=== PATIENT | female | born 1970 | race Caucasian/White ===

== ENCOUNTER → 2018-02-19 11:32 | Outpatient (CLI) | payer BC, SELFPAY ==
--- NOTE | 2018-02-19 11:38 | RAD_ITS ---
STUDY: X-RAY - RIGHT SHOULDER REASON FOR EXAM: Female, 47 years old. Right shoulder pain, no known injury TECHNIQUE: 4 view(s) of the shoulder. COMPARISON: None. FINDINGS: Normal glenohumeral articulation. Normal acromioclavicular joint. Normal acromion. Normal humeral head and visualized proximal humerus. The soft tissue structures are unremarkable. Normal visualized pulmonary apex. RAD/Shoulder min 2 Views IMPRESSION: Normal x-ray examination of the shoulder. Electronically Signed: Martinez Langston DO at 9:07 EDT Tel , Service support ,
== END ==
PROVIDERS: Family Provider Family Medicine; PCP Family Medicine; Visit Provider Family Medicine
DX: M25.511 Pain in right shoulder (principal)
CPT/HCPCS: 73030

== ENCOUNTER → 2018-02-26 09:53 | Outpatient (CLI) | payer BC, SELFPAY ==
--- NOTE | 2018-02-26 09:54 | ECHOD_ITS ---
Reason For Study: MURMUR Procedure This was a 2D Doppler, Color Flow transthoracic echocardiogram. Exam performed in department. Left Ventricle Normal LV size. Left ventricular systolic function is normal. The estimated ejection fraction is 55 %. No evidence for diastolic dysfunction. No regional wall motion abnormalities noted. Right Ventricle Normal RV size. Normal systolic function. Atria Normal left atrium. Normal right atrium. Mitral Valve Mitral valve not well visualized. Tricuspid Valve The tricuspid valve is not well visualized. Mild (1+) tricuspid valve insufficiency. Pulmonary artery systolic pressure is 32 mmHg. Aortic Valve The aortic valve is not well visualized. Pulmonic Valve Normal pulmonic valve. Great Vessels Normal aortic root. The pulmonary artery is normal size. Normal inferior vena cava. Pericardium/Pleural No pericardial effusion. MMode/2D Measurements & Calculations LVIDd: 4.5 cm IVSd: 1.0 cm Ao root diam: 2.9 cm LVIDs: 3.3 cm LVPWd: 1.0 cm LA dimension: 3.8 cm RVDd: 3.3 cm FS: 25.6 % LAV(MOD-bp): 55.8 ml LA A4 area: 18.1 cm2 RA A4 area: 14.0 cm2 LAV(MOD-bp) Indexed: 29.5 ml/m2 LAV(MOD-sp2): 54.2 ml LAV(MOD-sp4): 56.0 ml Time Measurements MV dec time: 0.20 sec Doppler Measurements & Calculations MV E max river: 67.3 cm/sec Lat Peak E' River: 10.2 cm/sec Med Peak E' River: 10.4 cm/sec MV A max river: 56.5 cm/sec E/E' lat: 6.6 E/E' med: 6.5 MV E/A: 1.2 Ao V2 max: 123.3 cm/sec LV V1 max: 84.8 cm/sec PA V2 max: 86.3 cm/sec Ao max P.1 mmHg LV V1 max P.9 mmHg PI end-d river: 78.8 cm/sec TR max river: 255.8 cm/sec TR max P.3 mmHg Interpretation Summary Normal LV size. Left ventricular systolic function is normal. The estimated ejection fraction is 55 %. No evidence for diastolic dysfunction. Mild (1+) tricuspid valve insufficiency. Ordering Physician: Chadwick Narayanan Referring Physician: Chadwick Narayanan Performed By: Oralia Gerardo, PINA, RVT
== END ==
PROVIDERS: Family Provider Family Medicine; PCP Family Medicine; Visit Provider Family Medicine
DX: R01.1 Cardiac murmur, unspecified (principal)
CPT/HCPCS: 93306

== ENCOUNTER → 2018-03-27 10:24 | Outpatient (CLI) | payer BC, SELFPAY ==
--- NOTE | 2018-03-27 10:39 | US_ITS ---
STUDY: ULTRASOUND OF THE FEMALE PELVIS - COMPLETE REASON FOR EXAM: Female, 48 years old. Abnormal uterine bleeding LMP: TECHNIQUE: Transabdominal and Transvaginal TECHNICAL QUALITY: Adequate. COMPARISON: None. FINDINGS: The uterus is anteverted and is in a midline position. The uterus measures 9.2 x 6.2 x 5.4 cm. There is a Nabothian cyst of the cervix. The endometrium is hyperechoic. There is no demonstrated endometrial mass. There is a uterine fibroid which is well-circumscribed measuring 23 x 20 x 23 mm. This is in the anterior uterus. I.U.D. - The patient does not have an I.U.D. The right ovary is non-visualized. The left ovary is non-visualized. . There is no fluid in the cul-de-sac. The pre void volume of the bladder was 45 ml. US/Pelvic (Non ) IMPRESSION: Fibroid uterus. There are Nabothian cysts of the cervix. Electronically Signed: Wm Ndiaye MD at 17:43 EDT , Service support ,
--- NOTE | 2018-03-27 10:39 | US_ITS ---
STUDY: ULTRASOUND OF THE FEMALE PELVIS - COMPLETE REASON FOR EXAM: Female, 48 years old. Abnormal uterine bleeding LMP: TECHNIQUE: Transabdominal and Transvaginal TECHNICAL QUALITY: Adequate. COMPARISON: None. FINDINGS: The uterus is anteverted and is in a midline position. The uterus measures 9.2 x 6.2 x 5.4 cm. There is a Nabothian cyst of the cervix. The endometrium is hyperechoic. There is no demonstrated endometrial mass. There is a uterine fibroid which is well-circumscribed measuring 23 x 20 x 23 mm. This is in the anterior uterus. I.U.D. - The patient does not have an I.U.D. The right ovary is non-visualized. The left ovary is non-visualized. . There is no fluid in the cul-de-sac. The pre void volume of the bladder was 45 ml. US/Transvaginal Non- IMPRESSION: Fibroid uterus. There are Nabothian cysts of the cervix. Electronically Signed: Wm Ndiaye MD at 17:43 EDT , Service support ,
== END ==
PROVIDERS: Family Provider Family Medicine; PCP Family Medicine
DX: N92.1 Excessive and frequent menstruation with irregular cycle (principal)
CPT/HCPCS: 76830; 76856

== ENCOUNTER → 2018-05-20 15:39 | Outpatient (CLI) | payer BC, SELFPAY ==
--- NOTE | 2018-05-20 15:40 | BI_ITS ---
MAMMOGRAPHY - BILATERAL SCREENING REASON FOR EXAM: Female, 48 years old. Routine annual screening examination. PERTINENT HISTORY: Non-contributory. TECHNIQUE: Digital bilateral breast chapo (3D mammographic acquisition) in the CC and MLO projections. 2-D mediolateral oblique (MLO) and craniocaudad (CC) views of both breasts were obtained. CAD: Full Field Digital Mammography with Computer Added Detection was performed. COMPARISON: Comparison is made with prior examination dated January 14, 2009. FINDINGS: Breast Composition: There are scattered areas of fibroglandular density. There are several small well-defined scattered nodular densities in both breasts. These may represent small cysts. Correlation with ultrasound of both breasts is recommended as a baseline. No other significant abnormalities are identified. BI/SCREENING MAMM (CAD), BILAT IMPRESSION: Multiple small well-defined nodular densities in both breasts as described. Correlation with ultrasound is recommended. ASSESSMENT CATEGORY: BIRADS Category 0: Incomplete. Need additional imaging evaluation. A letter regarding these results will be sent to the patient by the facility within 30 days. Approximately 10% of breast cancers are not detected by mammography. A normal mammogram should not delay biopsy of a clinically suspicious abnormality. [id number] Electronically Signed: Anthony Wright MD at 8:04 EDT Tel [phone], Service support ,
== END ==
PROVIDERS: Family Provider Family Medicine; PCP Family Medicine; Visit Provider Obstetrics & Gynecology
DX: Z12.31 Encounter for screening mammogram for malignant neoplasm of breast (principal)
CPT/HCPCS: 77063; 77067

== ENCOUNTER → 2018-05-27 14:46 | Outpatient (CLI) | payer BC, SELFPAY ==
--- NOTE | 2018-05-27 14:52 | US_ITS ---
STUDY: ULTRASOUND BREAST - RIGHT REASON FOR EXAM: Female, 48 years old. Abnormal screening mammogram. TECHNIQUE: Axial and longitudinal images of the RIGHT breast were performed with a high resolution ultrasound transducer. COMPARISON: Comparison is made with prior mammogram dated May 20, 2018. FINDINGS: RIGHT Breast: There is a 3 mm x 5 mm x 3 mm cyst at the 12:00 position of the breast at 2 cm from nipple. This also evidence of a 5 mm x 5 mm x 3 mm cyst at the 2:00 position breast at 2 cm from nipple. IMPRESSION: 2 small cysts. ASSESSMENT CATEGORY: BIRADS Category 2: Benign. A letter regarding these results will be sent to the patient by the facility within 30 days. Electronically Signed: Anthony Wright MD at 8:22 EDT Tel [phone], Service support , STUDY: ULTRASOUND BREAST - LEFT REASON FOR EXAM: Female, 48 years old. Abnormal screening mammogram. TECHNIQUE: Axial and longitudinal images of the LEFT breast were performed with a high resolution ultrasound transducer. COMPARISON: Comparison is made with prior mammogram dated May 20, 2018. FINDINGS: LEFT Breast: There is a 4 mm x 4 mm x 4 mm cyst at the 9:00 position the breast at 1 cm from nipple. This also evidence of a dilated subareolar ducts. US/Breast Limited Unilateral IMPRESSION: Small cyst in the dilated subareolar ducts. Routine mammographic follow-up is recommended. ASSESSMENT CATEGORY: BIRADS Category 2: Benign. A letter regarding these results will be sent to the patient by the facility within 30 days. Electronically Signed: Anthony Wright MD at 8:23 EDT Tel [phone], Service support ,
--- NOTE | 2018-05-27 14:52 | US_ITS ---
STUDY: ULTRASOUND BREAST - RIGHT REASON FOR EXAM: Female, 48 years old. Abnormal screening mammogram. TECHNIQUE: Axial and longitudinal images of the RIGHT breast were performed with a high resolution ultrasound transducer. COMPARISON: Comparison is made with prior mammogram dated May 20, 2018. FINDINGS: RIGHT Breast: There is a 3 mm x 5 mm x 3 mm cyst at the 12:00 position of the breast at 2 cm from nipple. This also evidence of a 5 mm x 5 mm x 3 mm cyst at the 2:00 position breast at 2 cm from nipple. IMPRESSION: 2 small cysts. ASSESSMENT CATEGORY: BIRADS Category 2: Benign. A letter regarding these results will be sent to the patient by the facility within 30 days. Electronically Signed: Anthony Wright MD at 8:22 EDT Tel [phone], Service support , STUDY: ULTRASOUND BREAST - LEFT REASON FOR EXAM: Female, 48 years old. Abnormal screening mammogram. TECHNIQUE: Axial and longitudinal images of the LEFT breast were performed with a high resolution ultrasound transducer. COMPARISON: Comparison is made with prior mammogram dated May 20, 2018. FINDINGS: LEFT Breast: There is a 4 mm x 4 mm x 4 mm cyst at the 9:00 position the breast at 1 cm from nipple. This also evidence of a dilated subareolar ducts. US/Breast Limited Unilateral IMPRESSION: Small cyst in the dilated subareolar ducts. Routine mammographic follow-up is recommended. ASSESSMENT CATEGORY: BIRADS Category 2: Benign. A letter regarding these results will be sent to the patient by the facility within 30 days. Electronically Signed: Anthony Wright MD at 8:23 EDT Tel [phone], Service support ,
== END ==
PROVIDERS: Family Provider Family Medicine; PCP Family Medicine; Visit Provider Obstetrics & Gynecology
DX: R92.8 Other abnormal and inconclusive findings on diagnostic imaging of breast (principal)
CPT/HCPCS: 76642

== ENCOUNTER → 2018-12-02 11:01 | Outpatient (CLI) | payer BC, SELFPAY ==
[2018-12-02 14:05] LABS: Follicle Stimulating Hormone 52.8 mIU/mL
== END ==
PROVIDERS: Visit Provider Obstetrics & Gynecology
DX: N95.1 Menopausal and female climacteric states (principal); N92.1 Excessive and frequent menstruation with irregular cycle
CPT/HCPCS: 36415; 83001

== ENCOUNTER → 2020-06-21 | Outpatient (CLI) | payer BC, SELFPAY | END | disposition home or self-care (01) | PROVIDERS: PCP Family Medicine; Referring Provider Family Medicine; Visit Provider Family Medicine | DX: Z20.828 Contact with and (suspected) exposure to other viral communicable diseases (principal) | CPT/HCPCS: 87635; U0003 ==

== ENCOUNTER 2021-11-22 16:01 | Outpatient (CLI) | payer BC, SELFPAY ==
--- NOTE | 2021-11-22 16:07 | RAD_ITS ---
STUDY: X-RAY - RIGHT SHOULDER REASON FOR EXAM: Female, 51 years old. Right shoulder pain. TECHNIQUE: 4 view(s) of the shoulder. COMPARISON: None. FINDINGS: Normal glenohumeral articulation. There is mild degenerative arthrosis of the acromioclavicular joint without inferior osseous spur formation. Normal acromion. There is no acute fracture, dislocation or destructive osseous pathology. Normal humeral head and visualized proximal humerus. The soft tissue structures are unremarkable. Normal visualized pulmonary apex. RAD/Shoulder min 2 Views IMPRESSION: Mild arthrosis of the acromioclavicular joint. Electronically Signed: Alberto Schmitz DO at 16:56 EST Tel [phone], Service support ,
--- NOTE | 2021-11-22 16:08 | RAD_ITS ---
INDICATION: SHOULDER PAIN EXAMINATION/TECHNIQUE: X-RAY - XR Spine Cervical 4 or 5 Views COMPARISON: Right shoulder x-rays, 11/22/2021. FINDINGS: VERTEBRAE: Preserved vertebral body height. No fracture. No spondylolisthesis. Preservation of the normal cervical lordosis. There is significant facet arthropathy most notably at C3-4 through C5-6 levels. There is also uncovertebral joint arthropathy at these levels. DISCS: C4-5 and C5-6 degenerative disc and endplate changes, most notably at C5-6. Mild uncovertebral joint arthropathy at this level. NECK SOFT TISSUES: No prevertebral soft tissue widening. LUNG APICES: Clear. RAD/Cerv Spine 4 or 5 Views IMPRESSION: Mild to moderate degenerative disc and endplate changes C4-5 and C5-6 levels. Advanced facet joint arthropathy and hypertrophy C3-4 through C5-6. This appears to result in some neuroforaminal narrowing on the oblique views, most notably at C4-5 level. Electronically Signed: Sterling Villatoro DO at 21:46 EST Tel , Service support ,
== END 2021-11-22 23:59 | disposition short-term general hospital (02) ==
PROVIDERS: PCP Family Medicine; Referring Provider Family Medicine; Visit Provider Family Medicine
DX: M19.011 Primary osteoarthritis, right shoulder (principal)
CPT/HCPCS: 72050; 73030

== ENCOUNTER → 2022-05-02 | Outpatient (CLI) | payer BC, SELFPAY ==
--- NOTE | 2022-05-02 09:15 | MRI_ITS ---
STUDY: MRI RIGHT SHOULDER REASON FOR EXAM: Right shoulder pain. TECHNIQUE: Standardized fat and water weighted pulse sequences were obtained in all 3 orthogonal planes. COMPARISON: Radiographs 11/22/2021. FINDINGS: There is supraspinatus tendinosis and a small full-thickness tear of the distal anterior supraspinatus tendon (T2 coronal images 14, 15) measuring approximately 0.7 cm in length and width. There is infraspinatus tendinosis (T2 coronal images 8-10) without discrete tendon tear. Normal subscapularis tendon. Normal teres minor tendon. There is mild atrophy with mild partial fat replacement of the supraspinatus and infraspinatus muscles (T2 sagittal images 4-7). Normal subscapularis muscle. Normal teres minor muscle. There is a small glenohumeral joint effusion. Normal humeral head and visualized proximal humerus. Normal biceps labral complex. Normal intracapsular long biceps tendon. Normal labrum. Normal capsulo- ligamentous complex. There is mild acromioclavicular arthrosis with capsular thickening effacing the subacromial fat (T2 sagittal image 9). There is a Type I morphology (flat undersurface), with a neutral orientation. There is subacromial-subdeltoid bursal fluid. Normal visualized coracohumeral and coracoacromial ligaments. Normal deltoid muscle. Normal trapezius muscle. MRI/Upper Ext Joint Only(Routine) IMPRESSION: Small full-thickness tear and tendinosis of the supraspinatus tendon. Infraspinatus tendinosis. Mild atrophy of the supraspinatus and infraspinatus muscles. Mild acromioclavicular arthrosis. Glenohumeral joint fluid communicating with the subacromial-subdeltoid bursa. Electronically Signed: Andrzej Harris MD at 10:25 EDT ,
== END | disposition home or self-care (01) ==
LOC: MRI 09:07
PROVIDERS: PCP Family Medicine; Visit Provider Family Medicine
DX: M25.511 Pain in right shoulder (principal)
CPT/HCPCS: 73221

== ENCOUNTER → 2025-03-31 | Outpatient (CLI) | payer OTHER, SELFPAY ==
[2025-03-31 18:29] LABS: Hemoglobin A1c 5.8 % (<=5.6)
[2025-03-31 18:46] LABS: ALB/GLOB Ratio 1.3 RATIO (0.9-2.4); AST(SGOT) 51 U/L (<=31); Alanine Aminotransfer ALT/SGPT 81 U/L (<=34); Albumin, Serum 4.6 g/dL (3.5-5.0); Alkaline Phosphatase 95 U/L (35-104); Anion Gap 12 (5-15); BUN 13 mg/dL (4-19); BUN/Creat Ratio 16.6 RATIO (10-20); Calcium,Total 9.8 mg/dL (7.6-11.0); Carbon Dioxide 24.8 mmol/L (21.0-32.0); Chloride 102 mmol/L (98-108); Cholesterol 252 mg/dL (<=200); Creatinine, Serum 0.79 mg/dL (0.70-1.20); EST Glomerular Filtration Rate 87 (>60); Globulin 3.4 g/dL (2.2-4.2); Glucose 101 mg/dL (70-99); High Density Lipoprotein 61 mg/dL; Low Density Lipoprotein Calc. 154 mg/dL; Potassium 3.9 mmol/L (3.3-5.1); Sodium Level 139 mmol/L (133-145); Total Bilirubin 0.32 mg/dL (0.00-1.30); Triglycerides 184 mg/dL; Very Low Density Lipoprotein 37 mg/dL (5-40); Vitamin D,25 Hydroxy 31.3 ng/mL (30-100); cholesterol:hdl ratio screen 4.11
== END | disposition home or self-care (01) ==
LOC: MTLAB 16:41
PROVIDERS: PCP Family Medicine; Referring Provider Family Medicine; Visit Provider Family Medicine
DX: Z13.1 Encounter for screening for diabetes mellitus (principal); Z13.29 Encounter for screening for other suspected endocrine disorder; Z13.220 Encounter for screening for lipoid disorders; R53.83 Other fatigue
CPT/HCPCS: 36415; 80053; 80061; 82306; 83036; 84443

== ENCOUNTER → 2025-04-20 | Outpatient (CLI) | payer OTHER, SELFPAY ==
--- NOTE | 2025-04-20 08:01 | BI_ITS ---
EXAM: SCRN MAMM (CAD)W/SEBASTIEN BILAT DATE: 04/20/2025 CLINICAL HISTORY: F, Age 55 y/o , SCREENING BREAST CANCER RISK ASSESSMENT: Has not been calculated. TECHNIQUE: Bilateral screening digital breast tomosynthesis with 2D and 3D images. Computer aided detection. COMPARISON: Prior exam(s) dated 05/20/2018. FINDINGS: TISSUE DENSITY: The breast tissue is composed of scattered area of fibroglandular density. Bilateral Breast Mammographic Findings: There are no suspicious masses, suspicious cluster of microcalcifications, architectural distortion or secondary signs of malignancy identified in either breast. Partially obscured stable isodense masses are seen in both breasts. BI/SCRN MAMM (CAD)W/SEBASTIEN BILAT IMPRESSION: OVERALL FINAL ASSESSMENT: BIRADS 2 BENIGN FINDING RECOMMENDATION: Routine annual follow-up in 1 Year A letter with findings and recommendations will be mailed to the patient. Reading Location: [id number]
== END | disposition home or self-care (01) ==
LOC: OPBI 08:01
PROVIDERS: PCP Family Medicine; Referring Provider Family Medicine; Visit Provider Family Medicine
DX: Z00.00 Encounter for general adult medical examination without abnormal findings (principal); Z12.31 Encounter for screening mammogram for malignant neoplasm of breast
CPT/HCPCS: 77063; 77067; 88175; G0145

== ENCOUNTER 2025-07-06 07:37 | Day surgery (SDC) | payer OTHER, SELFPAY ==
[2025-07-06] VITALS (8 sets, daily range): BP systolic 114–142; BP diastolic 73–79; PULSE 77–104; RESP 16–17; TEMP 36.1–36.4; O2SAT 96–99; BMI 32.3
[2025-07-06] MEDS: Lactated Ringers 1,000 ML 15 ML IV (08:03)
--- NOTE | 2025-07-06 08:08 | H&P.OPEN ---
[facility] - General General Date of Service: 07/06/25 HPI Narrative JEFF NOONAN, is a 55 F who presents for screening colonoscopy. Patient's biological mom did have colon cancer unsure of age patient was adopted by family. Patient's previous colonoscopy was at age 43 negative at that time . Patient denies any chronic abdominal pain/nausea/vomiting/reflux. Patient has bowel movements daily denies any blood. PFS Medical History Post-menopausal Wears glasses Marijuana use High cholesterol Former smoker History of echocardiogram Home Medications ?Medication ?Instructions ?Recorded ?Last Taken ?Type NK 07/03/25 Unknown History Allergy/AdvReac Type Severity Reaction Status Date / Time No Known Allergies Allergy Verified 07/06/25 08:03 Surgical History History of anal fistulotomy History of colonoscopy History of lateral meniscus repair of left knee Social History Smoking Status: Former smoker Past Medical/Surgical History Planned Operation Planned Operative Procedure(s): cscope Previous Hospitalizations/Surgeries HX Hospitalizations: No Any Problems With Anesthesia: No You/Your Family Experience Fever (Hyperthermia) With Anes: No Cholinesterase deficiency: No Cardiovascular Hx Hypertension: No Respiratory Hx Sleep Apnea: No Hx Respiratory Tract Infection/Cold (presently): No Do You Snore Loudly (louder than talking or can be heard): No Do You Often Feel Tired/ Fatigued/ Sleepy Dring Daytime?: No Has Anyone Observed You Stop Breathing During Sleep?: No Result (for STOP score): Negative Smoking Status: Former smoker Neurological Does patient have nerve stimulator: No Reproduction : No Miscellaneous Recent Exposure to Contagious Disease: No Allergies No Known Allergies Allergy (Verified 07/06/25 08:03) Discharge Is Pt Admitted From a Retirement, or a Shelter: No After D/C, Where Do you Plan to Go: Return Home Vital Signs Vital Signs Vital Signs: 07/06/25 08:04 07/06/25 08:04 Temperature 96.9 F L Temperature Source Temporal Pulse Rate 77 Respiratory Rate 17 Respiratory Pattern Normal Blood Pressure 142/79 H Blood Pressure Mean 100 Blood Pressure Source Monitor Blood Pressure Position Semi-Fowlers Blood Pressure Location Left Arm Pulse Ox 99 Oxygen Delivery Method Room Air Weight Weight: 194 lb 10.691 oz Body Mass Index (BMI) 32.3 Physical Exam Const alert, oriented x3 and no apparent distress HEENT normocephalic and head/scalp atraumatic Resp normal respiratory effort Cardio regular rate GI soft to palpation and non-tender; Negative for non-distended Palpation: Negative for guarding Extremity no clubbing, cyanosis or edema Skin no rashes or lesions noted Neuro CN's II-XII intact bilaterally Psych mental status grossly normal Assessment & Plan Assessment/Plan (1) Family history of colon cancer: Surgery Risks - Colonoscopy I discussed with the patient the risks of the procedure: Yes Risks Include but are not Limited To: Risks include but are not limited to: Bleeding, perforation requiring further surgery, inability to complete colonoscopy requiring barium enema.
--- NOTE | 2025-07-06 08:27 | PCM.PRE.AN2 ---
ASA Classification* ASA Classification ASA Classification: 2 Assessment & Plan Anesthesia* Anesthesia Assessment Anesthesia Assessment: Discussed sedation and/or anesthesia options, risks, benefits, and alternatives with patient/parents/legal guardian/POA. Questions invited. The patient/parents/legal guardian/POA seems to understand and agrees to proceed with anesthesia plan. Reviewed the physical assessment, medical history, allergy history and patient home medications list prior to surgery/procedure/anesthetic and documented any changes. Performed airway and anesthesia risk assessments. Anesthesia Type Anesthesia Type: MAC History Source History Obtained from:: Patient and Chart Anesthesia Focused Assessment* Temperature: 96.9 F Pulse Rate: 77 Blood Pressure: 142/79 Respiratory Rate: 17 Pulse Ox: 99 Oxygen Delivery Method: Room Air Airway Assessment Mouth opens: >3 cm Mallampati Score: IV Teeth Condition: Caps/Crowns (1 crown is tight.) and Chipped/Broken (Teeth #24 and 25 are chipped.) Neck Range of motion (ROM): Limited ROM (Somewhat Decreased) Labs Anesthesia Preop lab: CBC WBC 8.3 K/mm3 (4.4-11.0) 02/26/15 09:07 02/26/15 RBC 4.33 M/mm3 (4.2-5.4) 02/26/15 09:07 02/26/15 Hgb 13.0 g/dl (12.0-15.0) 02/26/15 09:07 02/26/15 Hct 38.1 % (37-47) 02/26/15 09:07 02/26/15 Plt Count 354 K/mm3 (150-450) 02/26/15 09:07 02/26/15 CHEMISTRY Potassium 3.9 mmol/L (3.3-5.1) 03/31/25 16:51 03/31/25 Sodium 139 mmol/L (133-145) 03/31/25 16:51 03/31/25 BUN 13 mg/dL (4-19) 03/31/25 16:51 03/31/25 Creatinine 0.79 mg/dL (0.70-1.20) 03/31/25 16:51 03/31/25 Glucose 101 mg/dL (70-99) H 03/31/25 16:51 03/31/25 TSH 1.500 uIU/mL (0.300-4.200) 03/31/25 16:51 03/31/25 COAG Pre-Assessment Diagnosis/Proposed Procedure Planned Operative Procedure(s): cscope Anesthesia History Anesthesia History - contact center professional: Anesthesia History - contact center professional Hx Hospitalization No 07/06/25 08:12 Any Problems With Anesthesia No 07/06/25 08:12 Cholinesterase deficiency No 07/06/25 08:12 You/Your Family Experience No 07/06/25 08:12 fever (hyperthermia) with Relationship Recent Exposure to Contagious No 07/06/25 08:12 Disease Does patient have nerve No 07/06/25 08:12 stimulator Patient instructed to have device shut off --Does patient have Pacemaker No 07/06/25 08:04 or ICD? When Was Last Pacemaker Check QUESTION #4 FULL TEXT: You/Your Family Experience fever (hyperthermia) with Anesthesia Last Oral Intake Last Oral intake: Last Oral Intake NPO since 00:00 07/06/25 08:04 Meds taken in AM with sips of No 07/06/25 08:04 water? Meds patient instructed to take am of surgery PONV PONV - contact center professional: PONV - contact center professional Female Yes 07/03/25 08:40 HX of Motion Sickness No 07/03/25 08:40 HX of N/V After Surgery No 07/03/25 08:40 Non-Smoker Yes 07/03/25 08:40 Duration of Surgery greater No 07/03/25 08:40 than 60 minutes Number of Risk Factors 2 07/03/25 08:40 PONV Score Moderate Risk 07/03/25 08:40 Height & Weight Height & Weight: Anesthesia: Height & Weight Height 5 ft 5 in 07/06/25 08:04 Weight: 88.3 kg 07/06/25 08:04 Body Mass Index (BMI) 32.3 07/06/25 08:04 Respiratory Assessment Respiratory Assessment - contact center professional: Respiratory Tract Infection Hx - contact center professional Hx Respiratory Tract Infection No 07/06/25 08:12 STOP Sleep Apnea STOP Sleep Apnea - contact center professional: STOP Sleep Apnea - contact center professional Hx Hypertension No 07/06/25 08:12 Hx Sleep Apnea No 07/06/25 08:12 CPAP BIPAP Do you snore loudly (louder No 07/06/25 08:12 than talking or can be heard Do you often feel tired/ No 07/06/25 08:12 fatigued/ sleepy during daytime? Has anyone observed you stop No 07/06/25 08:12 breathing during sleep? STOP Results Negative 07/06/25 08:12 QUESTION #5 FULL TEXT : Do you snore loudly (louder than talking or can be heard through closed doors)? 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 Specify any problems Hx of Preganancy in last 3 N/A 07/03/25 08:40 Months Nurse Filling Out Transfusion NBUCHER 07/03/25 08:40 & Questions: Date: 07/03/25 07/03/25 08:40 Time: 08:41 07/03/25 08:40 Patient unable to answer at this time (ie. confused, unrespo /Reproduction History /Reproductive History - contact center professional: /Reproductive Hx- contact center professional Hx Now No 07/06/25 08:12 Gestational Age (in weeks): EDC: Hx Hx Para Hx Section SAB No 07/03/25 08:40 Active Medications Active Medications: Current Medications Generic Name Dose Route Start Last Admin Trade Name Freq PRN Reason Stop Dose Admin Lactated Ringer's 1,000 mls @ 15 mls/hr 07/06/25 08:00 07/06/25 08:03 IV 15 mls/hr .Q48H JOSEPHINE Administration PFSH Medical History Post-menopausal Wears glasses Marijuana use High cholesterol Former smoker History of echocardiogram Home Medications ?Medication ?Instructions ?Recorded ?Last Taken ?Type NK 07/03/25 Unknown History Allergy/AdvReac Type Severity Reaction Status Date / Time No Known Allergies Allergy Verified 07/06/25 08:03 Surgical History History of anal fistulotomy History of colonoscopy History of lateral meniscus repair of left knee Social History Smoking Status: Former smoker Review of Systems (Anesthesia) ROS Narrative System reviewed and no additional complaints, except as documented.
--- NOTE | 2025-07-06 09:35 | OP.COLON_ITS ---
Patient Name: Sherry Au Procedure Date: 07/06/2025 9:07 AM Date of : 1970 Age: 55 Procedure: Colonoscopy Indications: Family history of colon cancer in a first-degree relative before age 60 years, adopted Providers: Reyna Pavon MD Referring MD: Miky Kaminski Medicines: Monitored Anesthesia Care Patient Profile: This is a 55 year old female. Last Colonoscopy: more than 10 years ago. Complications: No immediate complications. Procedure: Pre-Anesthesia Assessment: - Prior to the procedure, a History and Physical was performed, and patient medications and allergies were reviewed. The patient's tolerance of previous anesthesia was also reviewed. The risks and benefits of the procedure and the sedation options and risks were discussed with the patient. All questions were answered, and informed consent was obtained. Prior Anticoagulants: The patient has taken no anticoagulant or antiplatelet agents. ASA Grade Assessment: Per anesthesia. After reviewing the risks and benefits, the patient was deemed in satisfactory condition to undergo the procedure. After I obtained informed consent, the scope was passed under direct vision. Throughout the procedure, the patient's blood pressure, pulse, and oxygen saturations were monitored continuously. The Colonoscope was introduced through the anus and advanced to the cecum, identified by the appendiceal orifice, ileocecal valve and palpation. The colonoscopy was performed without difficulty. The patient tolerated the procedure well. The quality of the bowel preparation was good. Scope In: 9:09:31 AM Scope Withdrawal Time 0 hours 7 minutes 43 seconds Scope Out: 9:25:22 AM Total Procedure Duration Time 0 hours 15 minutes 51 seconds Findings: The perianal and digital rectal examinations were normal. A few small-mouthed diverticula were found in the sigmoid colon. The exam was otherwise without abnormality on direct and retroflexion views. Impression: - Diverticulosis in the sigmoid colon. - The examination was otherwise normal on direct and retroflexion views. - No specimens collected. Recommendation: - Discharge patient to home. - High fiber diet. - Continue present medications. - Repeat colonoscopy in 5 years for screening purposes. Procedure Code(s): --- Professional --- 92755, PT, Colonoscopy, flexible; diagnostic, including collection of specimen(s) by brushing or washing, when performed (separate procedure) Diagnosis Code(s): --- Professional --- Z80.0, Family history of malignant neoplasm of digestive organs K57.30, Diverticulosis of large intestine without perforation or abscess without bleeding CPT copyright 2021 [employer]. All rights reserved. The codes documented in this report are preliminary and upon uke operator review may be revised to meet current compliance requirements. MD Reyna Blanco MD 07/06/2025 9:34:56 AM This report has been signed electronically. Number of Addenda: 0 Note Initiated On: 07/06/2025 9:07 AM
--- NOTE | 2025-07-06 09:35 | OP.PROVAT_ITS ---
07/06/2025 Miky Kaminski [address] [place] [address] Re : Colonoscopy procedure for Sherry Au Dear Dr. Kaminski This procedure was performed on Sunday, July 06, 2025. My impressions and recommendations are as follows: Impressions : - Diverticulosis in the sigmoid colon. - The examination was otherwise normal on direct and retroflexion views. - No specimens collected. Recommendations : - Discharge patient to home. - High fiber diet. - Continue present medications. - Repeat colonoscopy in 5 years for screening purposes. My findings are described in the full procedure note, which is enclosed. If I can be of further assistance, please feel free to contact me at Doctor phone number(s): , Work: . Sincerely, MD Reyna Blanco MD 07/06/2025 9:34:56 AM This report has been signed electronically.
--- NOTE | 2025-07-06 09:39 | PCM.POST.ANE ---
Anesthesia: Postop Eval I Current Vital Signs Temperature: 97.5 F Pulse Rate: 102 Blood Pressure: 117/73 Respiratory Rate: 16 Pulse Ox: 98 Oxygen Delivery Method: Room Air Assessment Airway patent: Yes Spontaneous unlabored respirations: Yes Mental status: Awake and Calm nausea: No Vomiting: No Anesthesia Complication: Yes Anesthesia Complication Comment:: vasovagal episode, tx w/IV glyco. Fluid Hydration Crystalloid volume administer (ml): 500 Total IV fluid infused: 500 Progress Note Anesthesia document: Postop Eval 1 completed: Yes
== END 2025-07-06 10:11 | disposition home or self-care (01) ==
LOC: EN 07:37 → AC 07:38
PROVIDERS: PCP Family Medicine; Referring Provider Family Medicine; Visit Provider Surgery
PROC: 0DJD8ZZ Inspection of Lower Intestinal Tract, Via Natural or Artificial Opening Endoscopic (ICD-10-PCS; CPT 45378; principal; 2025-07-06 08:40)
DX: Z12.11 Encounter for screening for malignant neoplasm of colon (principal); K57.30 Diverticulosis of large intestine without perforation or abscess without bleeding; Z87.891 Personal history of nicotine dependence; E78.00 Pure hypercholesterolemia, unspecified; Z80.0 Family history of malignant neoplasm of digestive organs
CPT/HCPCS: 45378; J2405